=== PATIENT | male | born 1985 | race Two or more races ===

== ENCOUNTER 2017-08-02 10:04 | Emergency (ER) | payer MEDICAID, OTHER ==
[~2017-08-02] VITALS: Ht 170.2 cm; Wt 83.9 kg
[2017-08-02] MEDS ORDERED: ACETAMINOPHEN 500 MG TAB PO ONE ×2 (10:17→10:30)
[2017-08-02 11:15] VITALS: BP 138/70
[2017-08-02] MEDS ORDERED: cefTRIAXone SOD 1,000 MG VL IM ONE (11:45)
== END 2017-08-02 12:01 | disposition home or self-care (01) ==
LOC: ER 10:04
DX: J03.90 Acute tonsillitis, unspecified (principal); J45.909 Unspecified asthma, uncomplicated; Z76.0 Encounter for issue of repeat prescription
CPT/HCPCS: 96372; 99283; J0696